=== PATIENT | female | born 1955 | race Caucasian/White ===

== ENCOUNTER 2022-07-10 14:44 | Emergency (ER) | payer OTHER ==
[~2022-07-10] VITALS: Ht 172.7 cm; Wt 72.6 kg
[2022-07-10 15:02] VITALS: BP_SYST 169
[2022-07-10] MEDS ORDERED: KETOROLAC TROMETHAMINE 30 MG VIAL IM ONE (15:45)
[2022-07-10] MEDS ORDERED: HYDR-3917 PO (15:49)
[2022-07-10 16:04] VITALS: BP_SYST 162
== END 2022-07-10 16:06 | disposition home or self-care (01) ==
LOC: SED 14:44
DX: M25.552 Pain in left hip (principal); Z79.899 Other long term (current) drug therapy
CPT/HCPCS: 99283; 73502; 96372; J1885

== ENCOUNTER 2022-11-17 11:53 | Emergency (ER) | payer OTHER ==
[~2022-11-17] VITALS: Ht 172.7 cm; Wt 72.6 kg
[~2022-11-17 11:53] MED LIST: HYDR-3917 PO
[2022-11-17] MEDS ORDERED: NACL 0.9% 1,000 ML IV ONE (12:15)
[2022-11-17 12:31] LABS: BASOPHILS % (AUTO) 0.3 % (0.0-2.0); EOSINOPHILS # (AUTO) 0.1 K/uL (0.0-0.4); EOSINOPHILS % (AUTO) 1.7 % (0.0-4.0); HEMATOCRIT 40.2 % (36-48); HEMOGLOBIN 13.4 g/dL (12.0-16.0); MEAN CORPUSCULAR HEMOGLOBIN 29 pg (27-31); MEAN CORPUSCULAR HGB CONC 33 % (32-36); MEAN CORPUSCULAR VOLUME 87 fL (79.0-98.0); MONOCYTES # (AUTO) 0.4 K/uL (0.0-1.0); MONOCYTES % (AUTO) 7.3 % (1.7-9.3); NEUTROPHILS # (AUTO) 3.4 K/uL (1.8-7.7); NEUTROPHILS % (AUTO) 69.7 % (40.0-70.0); PLATELET COUNT (AUTO) 204 K/uL (130-430); RED BLOOD CELL COUNT(AUTO) 4.62 MIL/uL (4.2-6.2); RED CELL DISTRIBUTION WIDTH 14.4 % (9.0-15.0); WHITE BLOOD COUNT (AUTO) 4.8 K/uL (4.8-10.8)
[2022-11-17 12:37] LABS: ANION GAP 7 (5-15); CALCIUM 9.5 mg/dL (8.4-11.0); CHLORIDE 104 mmol/L (98-107); GLUCOSE 153 mg/dL (70-99); UREA NITROGEN, BLOOD 18 mg/dL (8-21)
[2022-11-17 12:43] LABS: GFR AFRICAN AMERICAN 81 mL/min (>90)
[2022-11-17 12:44] LABS: ALANINE AMINOTRANSFERASE 21 U/L (12-78); ALBUMIN 4.1 g/dL (3.4-4.8); ASPARTATE AMINOTRANSFERASE 17 U/L (10-37); LIPASE 52 U/L (73-393); TOTAL BILIRUBIN 0.6 mg/dL (0.0-1.0)
[2022-11-17 13:03] LABS: BILIRUBIN,URINE 2+ (NEGATIVE); BLOOD, URINE NEGATIVE (NEGATIVE); COLOR,URINE YELLOW (YELLOW); GLUCOSE,URINE NEGATIVE (NEGATIVE); KETONES,URINE TRACE (NEGATIVE); LEUKOCYTE ESTERASE ,URINE 2+ (NEGATIVE); NITRITE, URINE NEGATIVE (NEGATIVE); PH,URINE 5.5 (5.0-8.0); PROTEIN URINE TRACE (NEGATIVE)
[2022-11-17 13:16] LABS: CLARITY/URINE HAZY (CLEAR)
[2022-11-17 13:27] LABS: BACTERIA,URINE MODERATE /HPF (None Seen); RBC,URINE 0-3 /HPF (0-3)
--- NOTE | 2022-11-17 13:56 | NUR ---
ER at bedside examining patient.
--- NOTE | 2022-11-17 14:00 | NUR ---
67 YO Female with new onset of dementia, anxiety presenting with chief complaint of left-sided flank/abdominal pain. Intermittent for the past 3 weeks acutely worsening over the past 2 weeks. Patient denies any associated fevers, chills, nausea, vomiting, diarrhea, blood in stool or black stool. No dysuria, hematuria, no vaginal bleeding or discharge. Patient was seen at urgent care previously and was diagnosed with a UTI was prescribed antibiotics.
--- NOTE | 2022-11-17 14:10 | NUR ---
# 20 gauge angiocath placed to RAC. Use of asceptic technique. Opsite placed over site. Blood return noted. Blood for lab drawn from site. Flushed with 10 cc of normal saline. No evidence of infiltration noted. Patient tolerated well.
--- NOTE | 2022-11-17 14:10 | NUR ---
Medicated per MD orders. IVF infusing with no s/s of infiltration at this time. Will cont to monitor
[2022-11-17] MEDS ORDERED: cefTRIAXone 1 GM in D5W 50 ML IV ONE (14:15)
[2022-11-17] MEDS ORDERED: cefTRIAXone 1 GM VIAL ONE (14:22)
[2022-11-17] MEDS ORDERED: ACETAMINOPHEN 500 MG TABLET PO ONE (15:00)
--- NOTE | 2022-11-17 15:24 | NUR ---
PT EDUCATED OF CONDITION OF PYELONEPHRITIS.
[2022-11-17] MEDS ORDERED: CEPH-548 PO (15:42)
--- NOTE | 2022-11-17 17:45 | NUR ---
Patient given written and verbal discharge instructions and verbalizes understanding. ER MD discussed with patient the results and treatment provided. Patient in stable condition. ID arm band removed. IV catheter removed intact and dressing applied, no active bleeding. Rx of CEPHALEXIN given. Patient educated on pain management and to follow up with PMD. Pain Scale . Opportunity for questions provided and answered. Medication side effect fact sheet provided.
[2022-11-17 19:16] VITALS: BP_SYST 148
== END 2022-11-17 15:55 | disposition home or self-care (01) ==
LOC: SED 11:53
DX: N39.0 Urinary tract infection, site not specified (principal); R10.32 Left lower quadrant pain; Z79.899 Other long term (current) drug therapy
CPT/HCPCS: 99284; 74177; 96360; 71045; 96361; 80053; 81000; 83880; 83690; 85025; 87086; 84484; 36415; 93005; 76376; J0696; Q9967; J7030

== ENCOUNTER 2022-12-17 13:17 | Emergency (ER) | payer OTHER ==
[~2022-12-17] VITALS: Ht 172.7 cm; Wt 66.7 kg
[~2022-12-17 13:17] MED LIST changes: +CEPH-548 PO
[2022-12-17 13:32] VITALS: BP_SYST 137
[2022-12-17 14:36] LABS: BILIRUBIN,URINE NEGATIVE (NEGATIVE); BLOOD, URINE NEGATIVE (NEGATIVE); COLOR,URINE YELLOW (YELLOW); GLUCOSE,URINE NEGATIVE (NEGATIVE); KETONES,URINE NEGATIVE (NEGATIVE); LEUKOCYTE ESTERASE ,URINE 2+ (NEGATIVE); NITRITE, URINE NEGATIVE (NEGATIVE); PH,URINE 6.5 (5.0-8.0); PROTEIN URINE NEGATIVE (NEGATIVE); UROBILINOGEN,URINE 0.2 (0.2-1.0)
[2022-12-17 14:38] LABS: CLARITY/URINE SLIGHTLY HAZY (CLEAR)
[2022-12-17 14:45] LABS: BACTERIA,URINE MODERATE /HPF (None Seen); RBC,URINE 0-3 /HPF (0-3)
[2022-12-17 14:48] LABS: BASOPHILS % (AUTO) 0.7 % (0.0-2.0); EOSINOPHILS # (AUTO) 0.1 K/uL (0.0-0.4); EOSINOPHILS % (AUTO) 2.4 % (0.0-4.0); HEMATOCRIT 38.1 % (36-48); HEMOGLOBIN 12.9 g/dL (12.0-16.0); LYMPHOCYTES # (AUTO) 1.4 K/uL (1.0-5.5); LYMPHOCYTES % (AUTO) 21.8 % (20.5-51.5); MEAN CORPUSCULAR HEMOGLOBIN 30 pg (27-31); MEAN CORPUSCULAR HGB CONC 34 % (32-36); MEAN CORPUSCULAR VOLUME 87 fL (79.0-98.0); MONOCYTES # (AUTO) 0.5 K/uL (0.0-1.0); MONOCYTES % (AUTO) 8.7 % (1.7-9.3); NEUTROPHILS # (AUTO) 4.2 K/uL (1.8-7.7); NEUTROPHILS % (AUTO) 66.4 % (40.0-70.0); PLATELET COUNT (AUTO) 187 K/uL (130-430); RED BLOOD CELL COUNT(AUTO) 4.37 MIL/uL (4.2-6.2); RED CELL DISTRIBUTION WIDTH 14.1 % (9.0-15.0); WHITE BLOOD COUNT (AUTO) 6.3 K/uL (4.8-10.8)
[2022-12-17 14:56] LABS: CALCIUM 9.4 mg/dL (8.4-11.0); CREATININE 0.93 mg/dL (0.55-1.30)
[2022-12-17 15:01] LABS: ALBUMIN 3.9 g/dL (3.4-4.8); TOTAL BILIRUBIN 0.5 mg/dL (0.0-1.0)
[2022-12-17] MEDS ORDERED: HYDROcodone/ACETAMIN 5-325 MG TAB (NORCO/ VICODIN) PO ONE (15:15)
[2022-12-17] MEDS ORDERED: HYDR-3917 PO (16:31)
[2022-12-17] MEDS ORDERED: LIDO1ADH71 TD (16:31)
[2022-12-17] MEDS ORDERED: CIPR500T5 PO (16:31)
--- NOTE | 2022-12-17 16:50 | NUR ---
DR. CUBA IN TRIAGE DISCUSSING PLAN OF CARE.
[2022-12-17 16:52] VITALS: BP_SYST 126
--- NOTE | 2022-12-17 16:52 | NUR ---
Patient given written and verbal discharge instructions and verbalizes understanding. ER MD discussed with patient the results and treatment provided. Patient in stable condition. ID arm band removed. Rx of CIPRO, NORCO, LIDOCAINE PATCH given. Patient educated on pain management and to follow up with PMD. Pain Scale 0/10 Opportunity for questions provided and answered. Medication side effect fact sheet provided.
== END 2022-12-17 16:52 | disposition home or self-care (01) ==
LOC: SED 13:17
DX: R10.9 Unspecified abdominal pain (principal); Z79.899 Other long term (current) drug therapy
CPT/HCPCS: 36415; 76376; 80053; 81000; 85025; 87086; 99284